=== PATIENT | female | born 1995 | race Two or more races ===

== ENCOUNTER → 2021-01-21 | Outpatient (CLI) | payer SELFPAY ==
[2015-01-14 23:24] VITALS: BP 146/77
[~2021-01-21] MED LIST: Hydrocodone/Acetaminophen PO; Ibuprofen PO; PREN1TAB58 PO
--- NOTE | 2021-01-21 16:46 | RAD ---
INDICATION: Reason: Post Coital Bleeding; Abnormal Uterine Bleeding / Spl. Instructions: / History: COMPARISON: None. TECHNIQUE: Grayscale and color ultrasound images uterus and adnexa. Transabdominal and transvaginal images obtained. Transvaginal images were needed to better visualize structures that were limited on transabdominal imaging. FINDINGS: Uterus: 108 x 55 x 46 mm. Endometrial stripe is 10 mm Right Ovary: 30 x 22 x 19 mm. Left Ovary: 26 x 26 x 16 mm. Vascular flow identified to bilateral ovaries. 7 mm cystic structure near cervix IMPRESSION: * Vascular flow seen to the ovaries. * Cystic structure near the cervix which could be secondary to nabothian cyst. Electronically signed by: Lobo Arthur MD (01/21/2021 4:43 PM) [id number]
== END ==
LOC: US 11:36
PROVIDERS: ATTEND Obstetrics & Gynecology
DX: N92.0 Excessive and frequent menstruation with regular cycle (principal); N93.9 Abnormal uterine and vaginal bleeding, unspecified; N93.0 Postcoital and contact bleeding
CPT/HCPCS: 76830; 76856